=== PATIENT | female | born 1950 | race Hispanic/Latino ===

== ENCOUNTER → 2018-03-14 | Outpatient (CLI) | payer MEDICARE | END | disposition home or self-care (01) | LOC: OIH 11:01 | PROVIDERS: ATTEND Internal Medicine | DX: M79.641 Pain in right hand (principal); R07.89 Other chest pain; R10.2 Pelvic and perineal pain | CPT/HCPCS: 71046; 72170; 73130 ==

== ENCOUNTER → 2019-02-14 | Outpatient (CLI) | payer MEDICARE | END | disposition home or self-care (01) | LOC: OIH 14:34 | PROVIDERS: ATTEND Internal Medicine | DX: M85.88 Other specified disorders of bone density and structure, other site (principal); M17.11 Unilateral primary osteoarthritis, right knee; M23.91 Unspecified internal derangement of right knee | CPT/HCPCS: 73560 ==

== ENCOUNTER → 2019-05-24 | Outpatient (CLI) | payer MEDICARE ==
--- NOTE | 2019-05-24 11:57 | NUR ---
MBSS COMPLETED. -S/S OF ASPIRATION. RECOMMEND REGULAR, THIN LIQUIDS; PILLS WHOLE WITH LIQUIDS. GI CONSULT RECOMMENDED. Addendum: 05/24/19 at 1158 by KARENA MANUEL, [facility] Amended: Links added.
== END | disposition home or self-care (01) ==
LOC: RAH 10:06
PROVIDERS: ATTEND Internal Medicine
DX: R13.10 Dysphagia, unspecified (principal); I10 Essential (primary) hypertension; E11.9 Type 2 diabetes mellitus without complications; K21.9 Gastro-esophageal reflux disease without esophagitis
CPT/HCPCS: 74230; 92611

== ENCOUNTER → 2020-12-22 | Outpatient (CLI) | payer MEDICARE, OTHER | END | disposition home or self-care (01) | LOC: OIH 14:30 | PROVIDERS: ATTEND Internal Medicine | DX: M16.11 Unilateral primary osteoarthritis, right hip (principal); M25.551 Pain in right hip | CPT/HCPCS: 73502 ==

== ENCOUNTER → 2020-12-23 | Outpatient (CLI) | payer OTHER | END | disposition home or self-care (01) | LOC: OIH 10:24 | PROVIDERS: ATTEND Internal Medicine | DX: M47.16 Other spondylosis with myelopathy, lumbar region (principal); M41.85 Other forms of scoliosis, thoracolumbar region | CPT/HCPCS: 72100 ==

== ENCOUNTER → 2021-01-28 | Outpatient (CLI) | payer OTHER ==
[~2021-01-28] MED LIST: IOHEXOL 350 MG/ML 100ML INFUS..BTL IV ONE
== END | disposition home or self-care (01) ==
LOC: RAH 08:24
PROVIDERS: ATTEND Internal Medicine
DX: I72.2 Aneurysm of renal artery (principal); D35.02 Benign neoplasm of left adrenal gland; N28.1 Cyst of kidney, acquired; K42.9 Umbilical hernia without obstruction or gangrene; K57.30 Diverticulosis of large intestine without perforation or abscess without bleeding; M41.80 Other forms of scoliosis, site unspecified
CPT/HCPCS: 74175; Q9967

== ENCOUNTER 2022-01-12 05:20 | Observation (INO) | payer OTHER ==
[~2022-01-12] VITALS: Ht 157.5 cm; Wt 59.9 kg
[2022-01-12] MEDS ORDERED: ONDANSETRON 4MG INJ IVP ONE (05:30)
[2022-01-12] MEDS ORDERED: FAMOTIDINE 20MG VIAL IV ONE (05:30)
[2022-01-12 05:47] LABS: BASOPHILS % (AUTO) 0.4 % (0.0-5.0); EOSINOPHILS % (AUTO) 0.4 % (0.0-8.0); HEMATOCRIT 43.9 % (36-48); LYMPHOCYTES % (AUTO) 21.6 % (21.0-51.0); MEAN CORPUSCULAR HEMOGLOBIN 31.2 pg (27.0-33.0); MEAN CORPUSCULAR HGB CONC 32.6 g/dL (32.0-36.0); MEAN CORPUSCULAR VOLUME 95.6 fL (79-99); MONOCYTES % (AUTO) 8.6 % (3.0-13.0); NEUTROPHILS % (AUTO) 68.6 % (40.0-77.0); PLATELET COUNT (AUTO) 281 K/uL (130-400); RED BLOOD CELL COUNT(AUTO) 4.59 MIL/uL (4.00-5.50); RED CELL DISTRIBUTION WIDTH 12.8 % (11.0-15.5); WHITE BLOOD COUNT (AUTO) 7.4 K/uL (4.8-10.8)
[2022-01-12 05:58] LABS: CREATININE 0.5 mg/dL (0.5-1.5); POTASSIUM 3.4 mmol/L (3.5-5.1)
[2022-01-12 06:02] LABS: ALBUMIN 3.7 g/dL (3.5-5.0); BILIRUBIN,TOTAL 0.5 mg/dL (0.2-1.0); MAGNESIUM 1.4 mg/dL (1.80-2.40); TOTAL PROTEIN, SERUM 7.3 g/dL (6.0-8.3)
[2022-01-12 06:08] LABS: B-TYPE NATRIURETIC PEPTIDE 17 pg/mL (0-100)
[2022-01-12] MEDS ORDERED: 0.9% NACL 250ML 250 ML IV ONE (06:30)
[2022-01-12] MEDS: NITROGLYCERIN 1GM OINT 1 INCH/1GM TD SCH ×2 (06:30→07:19)
[2022-01-12 07:30] LABS: APPEARANCE,URINE Clear (CLEAR); BILIRUBIN,URINE Negative (NEGATIVE); COLOR,URINE Yellow (YELLOW); GLUCOSE, URINE (UA) TRACE mg/dL (NEGATIVE); KETONES,URINE >=160 mg/dL (NEGATIVE); LEUKOCYTE ESTERASE ,URINE Small (NEGATIVE); NITRATE,URINE Negative (NEGATIVE); OCCULT BLOOD,URINE Negative (NEGATIVE); PH,URINE >=9.0 (5.0-8.0); PROTEIN,URINE 300 mg/dL (NEGATIVE)
[2022-01-12 07:53] LABS: BACTERIA,URINE Few /HPF (None Seen); MUCUS,URINE Moderate LPF (None Seen); SQUAMOUS EPITHELIAL CELL,UR 0-2 /HPF (0-2)
[2022-01-12] MEDS ORDERED: 1/2 NS 1000ML 1,000 ML IV ONE (08:02)
[2022-01-12 08:15] VITALS: BP 151/78
[2022-01-12] MEDS ORDERED: SUCR1ORA15 PO (09:01)
[2022-01-12] MEDS ORDERED: GLIM4TAB36 PO (09:01)
[2022-01-12] MEDS ORDERED: NITR0.4T50 SL (09:03)
[2022-01-12] MEDS ORDERED: ATOR40TA71 PO (09:06)
[2022-01-12] MEDS ORDERED: CARV6.25 PO (09:06)
[2022-01-12] MEDS ORDERED: LISI10TA24 PO (09:07)
[2022-01-12] MEDS ORDERED: OXYC1TAB12 PO (09:09)
[2022-01-12] MEDS: 1/2 NS 1000ML 1,000 ML IV SCH ×3 (09:28→22:03)
[2022-01-12] MEDS ORDERED: COMPOUND IV MISC 1 EACH IVSOLN MISC PRN (09:30)
[2022-01-12] MEDS ORDERED: LOPERAMIDE HCL 2 MG CAP PO PRN (09:30)
[2022-01-12] MEDS ORDERED: DEXTROSE 50%-WATER 50 ML DISP.SYRIN IV PRN (09:30)
[2022-01-12] MEDS ORDERED: ONDANSETRON 4MG INJ IVP PRN (09:30)
[2022-01-12] MEDS ORDERED: GLIMEPIRIDE 2 MG TABLET PO SCH (10:05)
[2022-01-12] MEDS: OXYCODONE/ACETAMIN 5/325MG TAB PO PRN (10:35)
[2022-01-12] MEDS: METRONIDAZOLE 250MG/50ML 50 ML IV SCH ×3 (10:45→22:35)
[2022-01-12] MEDS: CARVEDILOL 6.25 MG TABLET PO SCH ×2 (10:55→20:37)
[2022-01-12] MEDS: LISINOPRIL 10 MG TABLET PO SCH (10:56)
[2022-01-12] MEDS: SUCRALFATE 1 GM TABLET PO SCH ×3 (11:19→20:37)
[2022-01-12 11:40] VITALS: BP 153/75
[2022-01-12] MEDS ORDERED: METRONIDAZOLE 250MG/50ML 50 ML IV SCH (12:00)
[2022-01-12] MEDS ORDERED: LIDOCAINE HCL-MPF 1% 2ML VIAL IV PRN ×2 (12:30→19:30)
[2022-01-12] MEDS: INSULIN R PO SS1 SQ SCH ×3 (12:53→20:29)
[2022-01-12] MEDS: MAGNESIUM 2GM PREMIX 50ML 50 ML IV PRN (13:05)
[2022-01-12 15:25] VITALS: BP 145/74
[2022-01-12] MEDS ORDERED: POTASSIUM CHLORIDE 20MEQ/100ML 100 ML IV PRN (19:30)
[2022-01-12] MEDS ORDERED: POTASSIUM CHLORIDE 10% ELIXIR 20 MEQ/15 ML UDCUP PO PRN (19:30)
[2022-01-12 20:01] VITALS: BP 126/58
[2022-01-12] MEDS: ATORVASTATIN 40 MG TABLET PO SCH (20:37)
[2022-01-12] MEDS: KCL 20 MEQ ERTAB PO PRN ×2 (20:37→22:39)
[2022-01-12 23:29] VITALS: BP 149/67
[2022-01-13] MEDS: METRONIDAZOLE 250MG/50ML 50 ML IV SCH ×4 (03:42→21:11)
[2022-01-13 03:54] VITALS: BP 123/71
[2022-01-13 05:54] LABS: MAGNESIUM 1.8 mg/dL (1.80-2.40); POTASSIUM 4.1 mmol/L (3.5-5.1)
[2022-01-13] MEDS: SUCRALFATE 1 GM TABLET PO SCH ×4 (05:57→21:11)
[2022-01-13] MEDS: INSULIN R PO SS1 SQ SCH ×4 (05:58→20:55)
[2022-01-13 08:00] VITALS: BP 154/60
[2022-01-13] MEDS ORDERED: PANTOPRAZOLE 40 MG/VIAL IVP SCH (09:00)
[2022-01-13] MEDS: CARVEDILOL 6.25 MG TABLET PO SCH ×2 (11:37→21:11)
[2022-01-13] MEDS: LISINOPRIL 10 MG TABLET PO SCH (11:38)
[2022-01-13 12:00] VITALS: BP 134/64
[2022-01-13] MEDS: MAGNESIUM 2GM PREMIX 50ML 50 ML IV PRN (13:30)
[2022-01-13 16:00] VITALS: BP 151/58
[2022-01-13 20:08] VITALS: BP 173/80
[2022-01-13] MEDS: ATORVASTATIN 40 MG TABLET PO SCH (21:10)
[2022-01-13] MEDS: OXYCODONE/ACETAMIN 5/325MG TAB PO PRN (21:21)
[2022-01-14 00:12] VITALS: BP 142/76
[2022-01-14] MEDS: METRONIDAZOLE 250MG/50ML 50 ML IV SCH ×4 (03:59→21:06)
[2022-01-14 04:12] VITALS: BP 106/52
[2022-01-14] MEDS: INSULIN R PO SS1 SQ SCH ×4 (06:12→20:55)
[2022-01-14] MEDS: SUCRALFATE 1 GM TABLET PO SCH ×4 (06:14→21:05)
[2022-01-14 08:00] VITALS: BP 131/62
[2022-01-14] MEDS: CARVEDILOL 6.25 MG TABLET PO SCH ×2 (09:05→21:06)
[2022-01-14] MEDS: LISINOPRIL 10 MG TABLET PO SCH (09:05)
[2022-01-14] MEDS: PANTOPRAZOLE 40 MG TAB DR PO SCH (09:06)
[2022-01-14 12:00] VITALS: BP 147/70
[2022-01-14] MEDS: OXYCODONE/ACETAMIN 5/325MG TAB PO PRN (15:58)
[2022-01-14 16:00] VITALS: BP 129/63
[2022-01-14 20:08] VITALS: BP 142/72
[2022-01-14] MEDS: ATORVASTATIN 40 MG TABLET PO SCH (21:05)
[2022-01-15 00:08] VITALS: BP 155/74
[2022-01-15] MEDS: METRONIDAZOLE 250MG/50ML 50 ML IV SCH (03:59)
[2022-01-15 04:08] VITALS: BP 114/61
[2022-01-15] MEDS: SUCRALFATE 1 GM TABLET PO SCH (06:07)
[2022-01-15] MEDS: INSULIN R PO SS1 SQ SCH (06:07)
[2022-01-15 07:40] VITALS: BP 139/74
[2022-01-15] MEDS ORDERED: DIATR MEGLU/DIATRIZOATE SODIUM 30 ML BOTTLE ONE (08:11)
[2022-01-15] MEDS: LISINOPRIL 10 MG TABLET PO SCH (10:54)
[2022-01-15 10:55] VITALS: BP 139/74
[2022-01-15] MEDS: CARVEDILOL 6.25 MG TABLET PO SCH (10:55)
[2022-01-15] MEDS: PANTOPRAZOLE 40 MG TAB DR PO SCH (10:55)
== END 2022-01-15 12:00 | disposition home or self-care (01) ==
LOC: EDH 05:20 → EDHIP 06:33 → 3BH 08:17
PROVIDERS: ADMIT Internal Medicine; ATTEND Internal Medicine
DX: K29.70 Gastritis, unspecified, without bleeding (principal); K52.9 Noninfective gastroenteritis and colitis, unspecified; K21.9 Gastro-esophageal reflux disease without esophagitis; E86.0 Dehydration; I25.10 Atherosclerotic heart disease of native coronary artery without angina pectoris; E11.9 Type 2 diabetes mellitus without complications; I10 Essential (primary) hypertension; R07.89 Other chest pain; E78.5 Hyperlipidemia, unspecified; E83.42 Hypomagnesemia; I45.9 Conduction disorder, unspecified; Z79.899 Other long term (current) drug therapy
CPT/HCPCS: 36415 ×3; 71045; 74176; 74240; 76700; 78264; 80053; 81001; 82270; 82550; 82948 ×12; 83630; 83690; 83735 ×2; 83880; 84132; 84484; 85025; 87046; 87177; 87324; 87338; 93005; 96361; 96365; 96366 ×6; 96367; 96375 ×2; 96376; 99285; A9541; C9113; G0378 ×77; J1815 ×3; J2405 ×2; J3475 ×2; J3490 ×6; Q9963

== ENCOUNTER → 2023-10-26 | Outpatient (CLI) | payer OTHER ==
[~2023-10-26] MED LIST changes: +ATOR40TA71 PO; +CARV6.25 PO; -IOHEXOL 350 MG/ML 100ML INFUS..BTL IV ONE; +LISI10TA24 PO; +NITR0.4T50 SL; +OXYC1TAB12 PO; +SUCR1ORA15 PO
== END | disposition home or self-care (01) ==
LOC: RAH 11:36
PROVIDERS: ATTEND Internal Medicine
DX: R06.02 Shortness of breath (principal)
CPT/HCPCS: 71046